=== PATIENT | female | born 1995 | race African-American/Black ===

== ENCOUNTER 2021-12-27 15:10 | Emergency (ER) | payer MEDICARE ==
[~2021-12-27] VITALS: Ht 157.5 cm; Wt 60.0 kg
[2021-12-27 15:13] VITALS: BP 117/80
[2021-12-27] MEDS ORDERED: KETOROLAC 30MG/ML VIAL IM STA (15:13)
[2021-12-27] MEDS ORDERED: ASPIRIN 81MG TABLET PO ONE (15:15)
[2021-12-27 15:42] LABS: BASOPHILS % 0.9 % (0.0-2.0); EOSINOPHILS % 1.9 % (0.0-5.0); HEMATOCRIT. 36.7 % (36.0-48.0); HEMOGLOBIN. 12.3 g/dL (12.0-16.0); LYMPHOCYTES % 31.3 % (20.0-50.0); MEAN CORPUSCULAR HEMOGLOBIN 30.8 pg (28.0-32.0); MEAN CORPUSCULAR VOLUME 91.8 fL (81.0-99.0); MEAN PLATELET VOLUME 8.8 fl (7.4-10.4); NEUTROPHILS % 54.9 % (40.0-76.0); PLATELET 211 x1000/uL (130-400); RED CELL DISTRIBUTION WIDTH 13.1 % (11.6-14.6)
[2021-12-27 15:48] LABS: CHLORIDE 109 mEq/L (98-107)
[2021-12-27 15:49] LABS: CLARITY URINE CLOUDY (CLEAR); COLOR URINE YELLOW (YELLOW); KETONES URINE TRACE (NEGATIVE); LEUKOCYTE ESTERASE URINE TRACE (NEGATIVE); NITRITE URINE NEGATIVE (NEGATIVE); OCCULT BLOOD URINE NEGATIVE (NEGATIVE); PROTEIN URINE NEGATIVE (NEGATIVE); SPECIFIC GRAVITY URINE 1.033 (1.005-1.030)
[2021-12-27 16:10] LABS: HCG SCREEN NEGATIVE
== END 2021-12-27 18:07 | disposition home or self-care (01) ==
LOC: ER 15:10
DX: R07.9 Chest pain, unspecified (principal)
CPT/HCPCS: 36415; 71045; 80053; 81003; 83690; 83880; 84484; 84702; 84703; 85025; 93005; 96372; 99285; J1885